=== PATIENT | male | born 1995 | race Caucasian/White ===

== ENCOUNTER 2022-10-03 02:50 | Emergency (ER) | payer BC ==
[~2022-10-03] VITALS: Ht 185.4 cm; Wt 95.5 kg
[2022-10-03 03:22] VITALS: TEMP 98.2
[2022-10-03 05:30] VITALS: BP 113/66; PULSE 98
== END 2022-10-03 05:38 | disposition home or self-care (01) ==
LOC: COL.ER 02:50
DX: S79.911A Unspecified injury of right hip, initial encounter (principal); F10.929 Alcohol use, unspecified with intoxication, unspecified; F17.210 Nicotine dependence, cigarettes, uncomplicated; F17.290 Nicotine dependence, other tobacco product, uncomplicated; X58.XXXA Exposure to other specified factors, initial encounter